=== PATIENT | female | born 1950 | race Two or more races ===

== ENCOUNTER 2022-04-09 09:25 | Inpatient (IN) | payer MEDICARE, MEDICAID ==
[~2022-04-09] VITALS: Ht 160 cm; Wt 48.8 kg
[2022-04-09] MEDS ORDERED: LEVETIRACETAM 1000MG PREMIX 100 ML IV ONE ×3 (10:00→10:15)
[2022-04-09 11:37] LABS: BASOPHILS % 0.6 % (0.0-2.0); EOSINOPHILS % 0.7 % (0.0-5.0); HEMATOCRIT. 39.4 % (36.0-48.0); HEMOGLOBIN. 13.5 g/dL (12.0-16.0); LYMPHOCYTES % 13.7 % (20.0-50.0); MEAN CORPUSCULAR HEMOGLOBIN 32.7 pg (28.0-32.0); MEAN CORPUSCULAR VOLUME 95.5 fL (81.0-99.0); MEAN PLATELET VOLUME 9.3 fl (7.4-10.4); MONOCYTES % 5.9 % (2.0-8.0); NEUTROPHILS % 79.1 % (40.0-76.0); PLATELET 272 x1000/uL (130-400); RED BLOOD CELL COUNT 4.12 mill/uL (4.2-5.4); RED CELL DISTRIBUTION WIDTH 13.7 % (11.6-14.6)
[2022-04-09 11:45] LABS: CHLORIDE 109 mEq/L (98-107)
[2022-04-09 12:01] LABS: ETHANOL BLOOD < 10 mg/dL
[2022-04-09 12:14] LABS: CLARITY URINE CLOUDY (CLEAR); COLOR URINE YELLOW (YELLOW); KETONES URINE NEGATIVE (NEGATIVE); LEUKOCYTE ESTERASE URINE 3+ (NEGATIVE); NITRITE URINE NEGATIVE (NEGATIVE); OCCULT BLOOD URINE 2+ (NEGATIVE); PROTEIN URINE 1+ (NEGATIVE); SPECIFIC GRAVITY URINE 1.023 (1.005-1.030); UROBILINOGEN URINE 0.2 E.U./dL (0.2-1.0)
[2022-04-09] MEDS ORDERED: CEFTRIAXONE 1 G PREMIX 50 ML IV ONE (12:30)
[2022-04-09] MEDS ORDERED: LEVETIRACETAM 1000MG PREMIX 100 ML IV NR (13:00)
[2022-04-09 13:57] LABS: *AMPHETAMINES SCREEN URINE NEGATIVE (NEGATIVE); *BARBITURATES SCREEN URINE NEGATIVE (NEGATIVE); *BENZODIAZEPINES SCREEN URINE NEGATIVE (NEGATIVE); *COCAINE SCREEN URINE NEGATIVE (NEGATIVE); CANNABINOID URINE SCREEN NEGATIVE (NEGATIVE); METHADONE URINE SCREEN NEGATIVE (NEGATIVE); OPIATES URINE SCREEN NEGATIVE (NEGATIVE); PHENCYCLIDINE URINE SCREEN NEGATIVE (NEGATIVE)
[2022-04-09] MEDS ORDERED: SODIUM CHLORIDE 0.9% 500 ML IV NR (15:30)
[2022-04-09 16:00] VITALS: BP 111/47
[2022-04-09] MEDS ORDERED: HYDROCODONE/ACETAMINOPHEN 5/325MG TABLET PO PRN (16:15)
[2022-04-09] MEDS ORDERED: DOCUSATE SODIUM 100MG CAPSULE PO PRN (16:15)
[2022-04-09] MEDS ORDERED: MAGNESIUM/ALUMINUM HYDROXIDE/SIMETHICONE 30ML UDC PO PRN (16:15)
[2022-04-09] MEDS ORDERED: ACETAMINOPHEN 325MG TABLET PO PRN ×2 (16:15)
[2022-04-09] MEDS ORDERED: GUAIFENESIN 200MG/10ML SUGAR FREE UDC PO PRN (16:15)
[2022-04-09] MEDS ORDERED: CLONIDINE 0.1MG TABLET PO PRN (16:15)
[2022-04-09] MEDS ORDERED: IPRATROPIUM/ALBUTEROL 0.5-3(2.5)MG/3ML NEB NEB PRN (16:15)
[2022-04-09] MEDS ORDERED: ONDANSETRON HCL 4MG/2ML INJ IV PRN (16:15)
[2022-04-09] MEDS ORDERED: NA PHOS,M-B/NA PHOS,DI-BA ENEMA 118ML PR PRN (16:15)
[2022-04-09] MEDS ORDERED: LORAZEPAM 2MG/ML CPJ IV PRN (16:15)
[2022-04-09 18:08] LABS: PHOSPHORUS 1.6 mg/dL (2.5-4.9)
[2022-04-09] MEDS: DEXT 5%/LACTATED RINGERS 1,000 ML IV SCH (18:27)
[2022-04-09 20:00] VITALS: BP 126/39
[2022-04-09] MEDS: FAMOTIDINE 20MG/2ML VIAL IV SCH (20:56)
[2022-04-09] MEDS: ENOXAPARIN 30MG/0.3ML SYR SUBCUT SCH (20:56)
[2022-04-10] VITALS (7 sets, daily range): BP systolic 92–145; BP diastolic 46–69
[2022-04-10] MEDS ORDERED: LORAZEPAM 2MG/ML CPJ IV PRN (00:30)
[2022-04-10] MEDS: DEXT 5%/LACTATED RINGERS 1,000 ML IV SCH ×4 (00:45→17:32)
[2022-04-10] MEDS: LEVETIRACETAM 500 MG in SODIUM CHLORIDE 0.9% 100 ML IV SCH ×2 (06:26→17:32)
[2022-04-10 08:01] LABS: CHLORIDE 110 mEq/L (98-107)
[2022-04-10] MEDS ORDERED: CEFTRIAXONE 1 G PREMIX 50 ML IV SCH (09:00)
[2022-04-10] MEDS ORDERED: POTASSIUM PHOS,M-BASIC-D-BASIC 20 MMOL in DEXT 5% WATER 243.3333 ML IV NR (10:30)
[2022-04-10] MEDS: CEFTRIAXONE 1,000 MG in DEXTROSE 5% WATER 50 ML IV SCH (12:38)
[2022-04-10] MEDS ORDERED: NALOXONE HCL 0.4MG/ML VIAL IV PRN (14:00)
[2022-04-10 17:29] LABS: BASOPHILS % 0.7 % (0.0-2.0); EOSINOPHILS % 0.8 % (0.0-5.0); HEMATOCRIT. 36.6 % (36.0-48.0); HEMOGLOBIN. 12.3 g/dL (12.0-16.0); LYMPHOCYTES % 17.8 % (20.0-50.0); MEAN CORPUSCULAR HEMOGLOBIN 32.1 pg (28.0-32.0); MEAN CORPUSCULAR VOLUME 95.9 fL (81.0-99.0); MEAN PLATELET VOLUME 8.5 fl (7.4-10.4); MONOCYTES % 7.9 % (2.0-8.0); NEUTROPHILS % 72.8 % (40.0-76.0); PLATELET 255 x1000/uL (130-400); RED BLOOD CELL COUNT 3.81 mill/uL (4.2-5.4); RED CELL DISTRIBUTION WIDTH 13.4 % (11.6-14.6)
[2022-04-10 19:35] LABS: T4 FREE 1.17 ng/dL (0.76-1.46)
[2022-04-10 19:57] LABS: VITAMIN B12 SERUM 866 pg/mL (211-911)
[2022-04-10 19:58] LABS: FOLIC ACID (FOLATE) SERUM > 20.00 ng/mL (>5.38)
[2022-04-10] MEDS: FAMOTIDINE 20MG/2ML VIAL IV SCH (21:22)
[2022-04-10] MEDS: ENOXAPARIN 30MG/0.3ML SYR SUBCUT SCH (21:23)
[2022-04-11 00:01] VITALS: BP 133/39
[2022-04-11] MEDS: DEXT 5%/LACTATED RINGERS 1,000 ML IV SCH ×4 (01:35→21:42)
[2022-04-11 04:00] VITALS: BP 120/59
[2022-04-11] MEDS: LEVETIRACETAM 500 MG in SODIUM CHLORIDE 0.9% 100 ML IV SCH (05:08)
[2022-04-11 08:00] VITALS: BP 96/58
[2022-04-11] MEDS: LEVETIRACETAM 500MG PREMIX 100 ML IV SCH ×2 (09:23→21:41)
[2022-04-11] MEDS: CEFTRIAXONE 1,000 MG in DEXTROSE 5% WATER 50 ML IV SCH (12:28)
[2022-04-11] MEDS ORDERED: LACTULOSE ENEMA 1,000ML BOTTLE PR NR (14:00)
[2022-04-11] MEDS: MIDODRINE HCL 5MG TABLET PO SCH ×2 (14:30→21:41)
[2022-04-11 16:00] VITALS: BP 138/45
[2022-04-11 16:38] LABS: CHLORIDE 109 mEq/L (98-107)
[2022-04-11 20:00] VITALS: BP 144/60
[2022-04-11 21:02] LABS: BASOPHILS % 0.8 % (0.0-2.0); EOSINOPHILS % 0.8 % (0.0-5.0); HEMOGLOBIN. 12.9 g/dL (12.0-16.0); LYMPHOCYTES % 30.1 % (20.0-50.0); MEAN CORPUSCULAR HEMOGLOBIN 32.5 pg (28.0-32.0); MEAN CORPUSCULAR VOLUME 95.7 fL (81.0-99.0); MEAN PLATELET VOLUME 9.1 fl (7.4-10.4); MONOCYTES % 9.9 % (2.0-8.0); NEUTROPHILS % 58.4 % (40.0-76.0); PLATELET 269 x1000/uL (130-400); RED BLOOD CELL COUNT 3.97 mill/uL (4.2-5.4); RED CELL DISTRIBUTION WIDTH 13.6 % (11.6-14.6)
[2022-04-11] MEDS: FAMOTIDINE 20MG/2ML VIAL IV SCH (21:41)
[2022-04-11] MEDS: ENOXAPARIN 30MG/0.3ML SYR SUBCUT SCH (21:42)
[2022-04-11 23:48] VITALS: BP 97/45
[2022-04-12] VITALS (7 sets, daily range): BP systolic 97–149; BP diastolic 43–64
[2022-04-12] MEDS: DEXT 5%/LACTATED RINGERS 1,000 ML IV SCH ×2 (05:32→11:22)
[2022-04-12] MEDS: MIDODRINE HCL 5MG TABLET PO SCH ×2 (05:34→13:44)
[2022-04-12 06:33] LABS: CHLORIDE 110 mEq/L (98-107)
[2022-04-12] MEDS ORDERED: POTASSIUM CHLORIDE 20MEQ/PACKET PO NR (07:45)
[2022-04-12] MEDS: LEVETIRACETAM 500MG PREMIX 100 ML IV SCH (09:40)
[2022-04-12] MEDS: CEFTRIAXONE 1,000 MG in DEXTROSE 5% WATER 50 ML IV SCH (11:22)
[2022-04-12] MEDS ORDERED: LACTULOSE 20G/30ML UDC PO NR (13:30)
[2022-04-12] MEDS ORDERED: KEPPSOL PO (13:41)
[2022-04-12] MEDS ORDERED: MIDO5TAB4 PO (13:41)
[2022-04-12] MEDS ORDERED: LEVO-65 MT (13:41)
[2022-04-12] MEDS ORDERED: LEVETIRACETAM 500MG/5ML CUP PO SCH (21:00)
== END 2022-04-12 21:20 | disposition hospice, home (50) | DRG 872 ==
LOC: ER 09:25 → 7WST 12:18 → ENRESERV 16:18 → SUPCPDRO 16:33
PROVIDERS: ADMIT Internal Medicine; ATTEND Internal Medicine
PROC: 4A00X4Z Measurement of Central Nervous Electrical Activity, External Approach (ICD-10-PCS; principal; 2022-04-11)
DX: A41.9 Sepsis, unspecified organism (principal); N39.0 Urinary tract infection, site not specified; E72.20 Disorder of urea cycle metabolism, unspecified; R56.9 Unspecified convulsions; G30.9 Alzheimer's disease, unspecified; Z66 Do not resuscitate; T50.905A Adverse effect of unspecified drugs, medicaments and biological substances, initial encounter; E83.39 Other disorders of phosphorus metabolism; F02.80 Dementia in other diseases classified elsewhere, unspecified severity, without behavioral disturbance, psychotic disturbance, mood disturbance, and anxiety; I10 Essential (primary) hypertension; E87.6 Hypokalemia; Z88.0 Allergy status to penicillin
CPT/HCPCS: 36415; 70551; 71045; 80053; 80305; 80320; 81003; 82140; 82607; 82746; 82962; 83036; 83605; 83735; 84100; 84439; 84443; 84481; 84484; 85025; 87077; 87186; 92610; 93005; 97162; 97166; 99285; J0696; J1650; J1953; J2060; J3490; J7050; J7060; A4315; G0480